=== PATIENT | female | born 1995 | race African-American/Black ===

== ENCOUNTER 2019-05-27 20:26 | Emergency (ER) | payer OTHER, SELFPAY ==
[2019-05-27 21:20] LABS: #Basophils 0.1 thou/uL (0.0-0.2); #Eosinphils 0.2 thou/uL (0.0-0.7); #Lymphocytes 3.4 thou/uL (1.20-3.40); #Monocytes 0.8 thou/uL (0.11-0.59); #Neutrophils 5.9 thou/uL (1.40-6.50); %Basophils 0.9 % (0.0-1.0); %Eosinophils 1.5 % (0.0-10.0); %Lymphocytes 32.6 % (21.0-51.0); %Neutrophils 57.1 % (42.0-75.0); Hemoglobin 10.8 g/dL (12.0-16.0); Mean Corpuscular HGB CONC 33.4 g/dL (32.0-36.0); Mean Corpuscular Hemoglobin 27.9 pg (27.0-31.0); Mean Corpuscular Volume 83.8 fL (78.0-98.0); Mean Platelet Volume 6.6 fL (7.4-10.4); Platelet Count 256 thou/uL (130-400); RBC Distribution Width 12.7 % (11.5-14.5); Red Blood Cell (RBC) Count 3.85 mill/uL (4.20-5.40); White Blood Cell (WBC) Count 10.4 thou/uL (4.8-10.8)
[2019-05-27 21:32] LABS: Bilirubin Negative (Negative); Blood, Urine Negative (Negative); Clarity Clear (Clear); Glucose, Urine (Dipstick) Normal (Negative); Leukocyte Negative Leu/uL (Negative); Nitrite Negative (Negative); Protein, Urine (Dipstick) 10 mg/dL (Neg-Trace); Urobilinogen Normal mg/dL (Less than 2)
[2019-05-27 21:45] LABS: ALT (SGPT) 11 U/L (8-55); AST (SGOT) 13 U/L (5-34); Albumin 3.9 g/dL (3.5-5.0); Alkaline Phosphatase 37 U/L (40-110); Anion Gap 11 mmol/L (10-20); BUN (Urea Nitrogen) 10 mg/dL (7.0-18.7); Bilirubin, Total Less than 0.2 mg/dL (0.2-1.2); Calc. Creatinine Clearance 0 mL/min (70-130); Calcium 9.2 mg/dL (7.8-10.44); Carbon Dioxide 25 mmol/L (22-29); Chloride 108 mmol/L (98-107); Estimated GFR-MDRD 88; Glucose 86 mg/dL (70-105); Protein, Total 6.9 g/dL (6.0-8.3); Sodium 140 mmol/L (136-145)
--- NOTE | 2019-05-27 22:28 | ULT ---
PELVIC ULTRASOUND WITH GRAYSCALE, COLOR FLOW, AND SPECTRAL DOPPLER IMAGING: History: Abdominal cramping. Positive test. FINDINGS: A single live intrauterine gestation is seen with measurements that corresponding to a gestational ag e of 6 weeks 3 days and JONI 01-17-2020. The crown rump length measures 0.58 cm. heart rate measur es 119 beats/minute. A yolk sac is present. There is a 3 cm cyst in the right ovary. Flow is demonstrated to the right ovary. The left ovary has a normal appearance. Flow is not demonstrated to the left ovary, likely due to positioning. There is a small amount of free fluid in the pelvis. No subchorionic hemorrhage is seen. IMPRESSION: Single live intrauterine gestation of 6 weeks 3 days estimated gestation age with an JONI of 01-17-2020. POS: [facility]
== END 2019-05-27 22:45 | disposition home or self-care (01) ==
LOC: ERS 20:26
DX: O99.89 Other specified diseases and conditions complicating pregnancy, childbirth and the puerperium (principal); R10.9 Unspecified abdominal pain; O99.341 Other mental disorders complicating pregnancy, first trimester; F41.9 Anxiety disorder, unspecified; F32.9 Major depressive disorder, single episode, unspecified; Z3A.09 9 weeks gestation of pregnancy
CPT/HCPCS: 36415; 76856; 80053; 81003; 84702; 85025

== ENCOUNTER 2019-06-17 11:48 | Emergency (ER) | payer MEDICAID, SELFPAY ==
[2019-06-17] MEDS ORDERED: Ondansetron ODT 4 MG TAB ONE (12:06)
== END 2019-06-17 12:35 | disposition home or self-care (01) ==
LOC: ERS 11:48
DX: O21.9 Vomiting of pregnancy, unspecified (principal); O99.341 Other mental disorders complicating pregnancy, first trimester; F31.9 Bipolar disorder, unspecified; F41.9 Anxiety disorder, unspecified; Z3A.10 10 weeks gestation of pregnancy
CPT/HCPCS: 99283; Q0162

== ENCOUNTER 2019-08-05 17:09 | Emergency (ER) | payer OTHER ==
[2019-08-05 17:43] LABS: #Basophils 0.1 thou/uL (0.0-0.2); #Eosinphils 0.1 thou/uL (0.0-0.7); #Lymphocytes 2.6 thou/uL (1.20-3.40); #Monocytes 0.6 thou/uL (0.11-0.59); #Neutrophils 4.9 thou/uL (1.40-6.50); %Basophils 0.9 % (0.0-1.0); %Eosinophils 1.4 % (0.0-10.0); %Lymphocytes 31.5 % (21.0-51.0); %Monocytes 7.1 % (0.0-10.0); %Neutrophils 59.1 % (42.0-75.0); Mean Corpuscular HGB CONC 34.3 g/dL (32.0-36.0); Mean Corpuscular Hemoglobin 28.4 pg (27.0-31.0); Mean Corpuscular Volume 82.9 fL (78.0-98.0); Mean Platelet Volume 7.7 fL (7.4-10.4); Platelet Count 248 thou/uL (130-400); RBC Distribution Width 12.4 % (11.5-14.5); Red Blood Cell (RBC) Count 4.22 mill/uL (4.20-5.40); White Blood Cell (WBC) Count 8.3 thou/uL (4.8-10.8)
[2019-08-05 18:06] LABS: ALT (SGPT) 12 U/L (8-55); AST (SGOT) 11 U/L (5-34); Albumin 3.7 g/dL (3.5-5.0); Alkaline Phosphatase 36 U/L (40-110); Anion Gap 12 mmol/L (10-20); BUN (Urea Nitrogen) 7 mg/dL (7.0-18.7); Bilirubin, Total 0.2 mg/dL (0.2-1.2); Calc. Creatinine Clearance 0 mL/min (70-130); Calcium 9.3 mg/dL (7.8-10.44); Carbon Dioxide 21 mmol/L (22-29); Chloride 106 mmol/L (98-107); Estimated GFR-MDRD Greater than 90; Globulin 3.4 g/dL (2.4-3.5); Glucose 92 mg/dL (70-105); Lipase 47 U/L (8-78); Potassium 3.4 mmol/L (3.5-5.1); Protein, Total 7.1 g/dL (6.0-8.3); Sodium 136 mmol/L (136-145)
[2019-08-05] MEDS ORDERED: Acetaminophen 500 MG TAB ONE (19:08)
[2019-08-05 19:33] LABS: Bilirubin Negative (Negative); Blood, Urine Trace (Negative); Clarity Clear (Clear); Glucose, Urine (Dipstick) Normal (Negative); Leukocyte Negative Leu/uL (Negative); Nitrite Negative (Negative); Protein, Urine (Dipstick) 10 mg/dL (Neg-Trace); Urobilinogen Normal mg/dL (Less than 2)
[2019-08-05 19:34] LABS: Bacteria/HPF None Seen HPF (None Seen); Calcium Oxalate Crystals 1+ HPF (None Seen); RBC/HPF 0-3 HPF (0-3); Squamous Epithelial 0-3 HPF (0-3); WBC/HPF 0-3 HPF (0-3)
--- NOTE | 2019-08-05 20:47 | ULT ---
EXAM: OB ultrasound COMPARISON: None HISTORY: female patient. Patient is having right lower quadrant abdominal pain. History of right ovar nina cyst. TECHNIQUE: Multiplanar grayscale and color Doppler transabdominal sonographic images are obtained. FINDINGS: There is a single intrauterine gestation in variable presentation. Cardiac Doppler demonstr ates heart tones with a heart rate of 168 beats per minute. The placenta is located posteriorly. Subjectively there is a normal amount of amniotic fluid. The cervical length measures 3. 8 cm based on transabdominal imaging. biometry measurements: BPD 3.59 cm -- 17 weeks HC 13.17 cm -- 16 weeks 5 days AC 11.52 cm -- 17 weeks 2 days FL 2.03 cm -- 16 weeks The estimated gestational age by ultrasound is 16 weeks 5 days with an JONI on01/15/2020. Gestational ag e by the last menstrual period is 16 weeks 3 days. The estimated weight by ultrasound is 166 g (6 ounces). This represents 61 percentile for weight. anatomical structures are not well evaluated on this examination due to gestational age. No def inite anomalies are seen. A normal cord insertion and stomach are seen. Limited visualized spine has a normal appearance. The right ovary demonstrates a normal sonographic appearance. A small hypoechoic structure is seen wi thin the right ovary measuring 1.9 cm which may represent corpus luteal cyst. Flow is documented in the right ovary. Left ovary is not imaged or evaluated on this exam. IMPRESSION: 1. Single intrauterine gestation in variable presentation with heart tones documented. Estimate d gestational age by ultrasound is 16 weeks 5 days. 2. Estimated weight is 166 g (6 ounces). 3. Right ovary is visualized with small cyst seen which may represent small corpus luteal cyst. Arter ial flow is documented in the right ovary. Left ovary is not seen..
== END 2019-08-05 21:15 | disposition home or self-care (01) ==
LOC: ERS 17:09
DX: O99.89 Other specified diseases and conditions complicating pregnancy, childbirth and the puerperium (principal); N20.0 Calculus of kidney; O99.342 Other mental disorders complicating pregnancy, second trimester; F41.9 Anxiety disorder, unspecified; F32.9 Major depressive disorder, single episode, unspecified; Z3A.16 16 weeks gestation of pregnancy
CPT/HCPCS: 36415; 76805; 80053; 81003; 81015; 83690; 85025; 96360

== ENCOUNTER 2019-08-06 08:26 | Emergency (ER) | payer OTHER ==
[2019-08-06 09:43] LABS: Bilirubin Negative (Negative); Blood, Urine Negative (Negative); Clarity Clear (Clear); Glucose, Urine (Dipstick) Normal (Negative); Leukocyte Negative Leu/uL (Negative); Nitrite Negative (Negative); Protein, Urine (Dipstick) Negative (Neg-Trace); Urobilinogen Normal mg/dL (Less than 2)
[2019-08-06 09:45] LABS: #Basophils 0.1 thou/uL (0.0-0.2); #Eosinphils 0.1 thou/uL (0.0-0.7); #Lymphocytes 2.5 thou/uL (1.20-3.40); #Monocytes 0.6 thou/uL (0.11-0.59); #Neutrophils 4.7 thou/uL (1.40-6.50); %Basophils 1.2 % (0.0-1.0); %Lymphocytes 31.1 % (21.0-51.0); %Monocytes 7.1 % (0.0-10.0); %Neutrophils 59.7 % (42.0-75.0); Hemoglobin 11.6 g/dL (12.0-16.0); Mean Corpuscular HGB CONC 34.1 g/dL (32.0-36.0); Mean Corpuscular Hemoglobin 28.2 pg (27.0-31.0); Mean Corpuscular Volume 82.8 fL (78.0-98.0); Mean Platelet Volume 7.5 fL (7.4-10.4); Platelet Count 235 thou/uL (130-400); RBC Distribution Width 12.4 % (11.5-14.5); Red Blood Cell (RBC) Count 4.09 mill/uL (4.20-5.40); White Blood Cell (WBC) Count 7.9 thou/uL (4.8-10.8)
[2019-08-06 10:06] LABS: ALT (SGPT) 13 U/L (8-55); AST (SGOT) 12 U/L (5-34); Albumin 3.8 g/dL (3.5-5.0); Alkaline Phosphatase 36 U/L (40-110); Anion Gap 11 mmol/L (10-20); BUN (Urea Nitrogen) 4 mg/dL (7.0-18.7); Bilirubin, Total 0.3 mg/dL (0.2-1.2); Calc. Creatinine Clearance 0 mL/min (70-130); Calcium 9.2 mg/dL (7.8-10.44); Carbon Dioxide 23 mmol/L (22-29); Chloride 105 mmol/L (98-107); Estimated GFR-MDRD Greater than 90; Globulin 3.4 g/dL (2.4-3.5); Glucose 87 mg/dL (70-105); Lipase 36 U/L (8-78); Potassium 3.2 mmol/L (3.5-5.1); Protein, Total 7.2 g/dL (6.0-8.3); Sodium 136 mmol/L (136-145)
[2019-08-06] MEDS ORDERED: Acetaminophen 500 MG TAB ONE (10:26)
== END 2019-08-06 11:19 | disposition home or self-care (01) ==
LOC: ERS 08:26
DX: O26.891 Other specified pregnancy related conditions, first trimester (principal); R10.31 Right lower quadrant pain; O99.341 Other mental disorders complicating pregnancy, first trimester; F41.9 Anxiety disorder, unspecified; F31.9 Bipolar disorder, unspecified; Z3A.13 13 weeks gestation of pregnancy
CPT/HCPCS: 36415; 80053; 81003; 83690; 85025; 99284

== ENCOUNTER 2019-11-09 13:45 | Emergency (ER) | payer OTHER ==
[2019-11-09 14:30] LABS: #Eosinphils 0.1 thou/uL (0.0-0.7); #Monocytes 0.5 thou/uL (0.11-0.59); #Neutrophils 4.7 thou/uL (1.40-6.50); %Basophils 0.6 % (0.0-1.0); %Eosinophils 0.9 % (0.0-10.0); %Lymphocytes 27.2 % (21.0-51.0); %Monocytes 7.2 % (0.0-10.0); %Neutrophils 64.2 % (42.0-75.0); Hemoglobin 11.4 g/dL (12.0-16.0); Mean Corpuscular HGB CONC 32.9 g/dL (32.0-36.0); Mean Corpuscular Hemoglobin 27.6 pg (27.0-31.0); Mean Corpuscular Volume 83.9 fL (78.0-98.0); Mean Platelet Volume 8.8 fL (7.4-10.4); Platelet Count 188 thou/uL (130-400); RBC Distribution Width 12.9 % (11.5-14.5); Red Blood Cell (RBC) Count 4.12 mill/uL (4.20-5.40); White Blood Cell (WBC) Count 7.3 thou/uL (4.8-10.8)
[2019-11-09] MEDS ORDERED: Acetaminophen 500 MG TAB ONE (14:30)
[2019-11-09 14:54] LABS: ALT (SGPT) 13 U/L (8-55); AST (SGOT) 15 U/L (5-34); Albumin 3.6 g/dL (3.5-5.0); Alkaline Phosphatase 86 U/L (40-110); Anion Gap 12 mmol/L (10-20); BUN (Urea Nitrogen) 4 mg/dL (7.0-18.7); Bilirubin, Total 0.4 mg/dL (0.2-1.2); Calc. Creatinine Clearance 0 mL/min (70-130); Calcium 9.3 mg/dL (7.8-10.44); Carbon Dioxide 21 mmol/L (22-29); Chloride 106 mmol/L (98-107); Estimated GFR-MDRD Greater than 90; Globulin 3.6 g/dL (2.4-3.5); Glucose 74 mg/dL (70-105); Lipase 43 U/L (8-78); Magnesium 1.7 mg/dL (1.6-2.6); Potassium 3.3 mmol/L (3.5-5.1); Protein, Total 7.2 g/dL (6.0-8.3); Sodium 136 mmol/L (136-145)
[2019-11-09 14:58] LABS: Bacteria/HPF 3+ HPF (None Seen); Bilirubin Negative (Negative); Blood, Urine Negative (Negative); Clarity Clear (Clear); Glucose, Urine (Dipstick) Normal (Negative); Leukocyte Negative Leu/uL (Negative); Mucous/LPF 1+ LPF (<2+); Nitrite Negative (Negative); Protein, Urine (Dipstick) 30 mg/dL (Neg-Trace)
[2019-11-09] MEDS ORDERED: Mag-Al 1200 mg/1200 mg/30 ML UDCUP ONE (15:12)
--- NOTE | 2019-11-22 15:48 | EKG ---
Test Reason : Blood Pressure : / mmHG Vent. Rate : 074 BPM Atrial Rate : 074 BPM P-R Int : 138 ms QRS Dur : 080 ms QT Int : 400 ms P-R-T Axes : 015 011 008 degrees QTc Int : 444 ms Normal sinus rhythm Minimal voltage criteria for LVH, may be normal variant Borderline ECG Confirmed by SHARLENE FRANKS DO ([id number]), health editor CHAD JOLLY ([id number]) on 11/22/2019 3:47:32 PM Referred By: Confirmed By:SHARLENE FRANKS DO
== END 2019-11-09 15:28 | disposition home or self-care (01) ==
LOC: ERS 13:45
DX: O99.613 Diseases of the digestive system complicating pregnancy, third trimester (principal); K21.9 Gastro-esophageal reflux disease without esophagitis; O99.89 Other specified diseases and conditions complicating pregnancy, childbirth and the puerperium; R07.2 Precordial pain; O99.343 Other mental disorders complicating pregnancy, third trimester; F41.9 Anxiety disorder, unspecified; F31.9 Bipolar disorder, unspecified; Z3A.31 31 weeks gestation of pregnancy
CPT/HCPCS: 80053; 81003; 81015; 83690; 83735; 84484; 85025; 93005

== ENCOUNTER 2019-12-01 16:05 | Day surgery (SDC) | payer OTHER ==
[2019-12-01] MEDS ORDERED: hydrALAZINE 20 MG/ML VIAL SLOW IVP PRN (17:17)
[2019-12-01] MEDS ORDERED: Promethazine HCl 25 MG/ML VIAL IM SCH (17:30)
[2019-12-01] MEDS ORDERED: Morphine 4 MG/ML VIAL IM SCH (17:30)
--- NOTE | 2019-12-02 05:43 | PRG ---
DATE OF SERVICE: 12/01/2019 PRIMARY DISTRIBUTION ASSOCIATE: James Mayo MD CHIEF COMPLAINT: Pelvic pain. HISTORY OF PRESENT ILLNESS: The patient is a 24-year-old, G2, P1 female with an intrauterine at 33 weeks and a day, who presented for a 45- to 60-minute onset of right sharp pelvic pain. She describes them as sharp, radiating to the vaginal wall, stabbing in nature. She noticed it when she first woke up from her nap and rolled over to get out of bed, making it worse. She denies any previous injuries or unusual activities or exertional activities prior to taking a nap. She denies fever, cough, headache, chest pain, shortness of breath, nausea, vomiting, diarrhea, or constipation. She denies new rashes, hip problems, knee problems, or muscle weakness. She denies vaginal bleeding, leakage of fluid, urinary urgency, or frequency. PAST MEDICAL HISTORY: Negative. PAST SURGICAL HISTORY: 1. She has had a prior . 2. She has had pilonidal cyst removed. 3. She has had 2 abscesses treated under general anesthesia. 4. She has had her tonsils removed. PSYCHIATRIC HISTORY: Includes: 1. Anxiety. 2. Bipolar disorder. 3. Depression. SOCIAL HISTORY: She denies drug, alcohol, or tobacco use. ALLERGIES: BACTRIM. MEDICATIONS: vitamins. OBSTETRIC LABORATORY DATA: Unavailable. REVIEW OF SYSTEMS: Per HPI. PHYSICAL EXAMINATION: VITAL SIGNS: Blood pressure is 134/87, heart rate of 81, respiratory rate 18, saturating 100% on room air, and temperature 98.0. GENERAL: She is alert, oriented, cooperative, and pleasant to interact with. HEAD: Normocephalic and atraumatic. LUNGS: Clear to auscultation bilaterally. HEART: Regular rate and rhythm. ABDOMEN: Gravid, soft, and nontender. She does have some tenderness with deviation of the uterus to the right in her lower right pelvis, reproducing her chief complaint. She has no fundal tenderness. No palpable contractions. EXTREMITIES: Nontender and nonedematous. : Deferred. heart tracing shows the fetus with a baseline in the 150s with moderate long-term variability, positive 15 x 15 accelerations, no decelerations. Tocometer showing no contractions. ASSESSMENT AND PLAN: The patient is a 24-year-old female with acute onset ligament strain, likely while sleeping and rolling over in her bed, she pulled a ligament associated with her uterus. The patient has been given 8 mg of morphine IM and 25 mg of Phenergan for temporary relief. She has been counseled using a belly band to give extra support may be helpful as she is healing. Two tablets of Extra Strength Tylenol 3 times a day for the next several days also can assist in pain relief. Fetus has a category 1 tracing and reactive NST. The patient is being discharged to home with instructions to follow up with her primary OB as scheduled. Job ID: [id number]
== END 2019-12-01 17:50 | disposition home or self-care (01) ==
LOC: L&D/OP 16:05
PROVIDERS: ATTEND Obstetrics & Gynecology
DX: O99.89 Other specified diseases and conditions complicating pregnancy, childbirth and the puerperium (principal); R10.2 Pelvic and perineal pain; O34.219 Maternal care for unspecified type scar from previous cesarean delivery; Z3A.33 33 weeks gestation of pregnancy; Z88.2 Allergy status to sulfonamides
CPT/HCPCS: J2270; J2550

== ENCOUNTER 2019-12-08 14:14 | Day surgery (SDC) | payer OTHER ==
[2019-12-08 14:38] VITALS: BMI 37.4
[2019-12-08] MEDS ORDERED: hydrALAZINE 20 MG/ML VIAL SLOW IVP PRN (15:04)
[2019-12-08] MEDS ORDERED: Acetaminophen 500 MG TAB PO SCH (15:15)
--- NOTE | 2019-12-08 15:40 | PDOC.FPROB ---
FMR OB H&P: HPI - History of Present Illness Chief Complaint: Right lower pelvi pain Indentification: 24 yo F @ 34.1 weeks History of Present Illness: Pt comes in w/ c/c of right sided pelvic pain. Reports woke up and pain has been going on since then. Reports as sharp. Reports as stabbing pain. Denies any recent trauma or stenuous activity the days prior. Denies any n/v/d/c. She denies any ctx, vaginal bleeding, discharge or irritation. Denies any urinary sx 's, burning with urination. Pt denies any rashes. Denies any fever or chills. Denies any chest pain or SOB. Pt denies any swelling. Pt reports not feeling baby as much as she usually does. Denies any LOF. Primary Care Physician: Gael FMR OB H&P: Current - Care : 2 Para: 1 Gestational age: 34.1 Due date: 12/19/2019 - OB Labs Blood type: unknown RH: unknown Antibody Screen: unknown HIV: unknown RPR: unknown HepBsAg: unknown Quad screen: unknown Gonorrhea: unknown Chlamydia: unknown FMR OB H&P: History - Past Medical History PMH: Anxiety/Depression, Bipolar - OB History OB History: Prior , Hx of preeclampsia in prior - Surgical History Sx History: prior , pilonidal cyst, 2 abscesses tx under general anesthesia, tonsilectomy - Social History Social History: Denies any drug, alcohol or tobacco use. - Family History Family History: Noncontributory FMR OB H&P: Medications - Current Allergies/Adverse Reactions: Allergies Allergy/AdvReac Type Severity Reaction Status Date / Time sulfamethoxazole Allergy Verified 12/08/19 14:36 [From Bactrim] trimethoprim [From Bactrim] Allergy Verified 12/01/19 16:33 FMR OB H&P: ROS - Review of Systems General: denies: fever/chills, weight/appetite/sleep changes Eyes: denies: vision changes, double vision Cardiovascular: denies: chest pain Respiratory: denies: cough, congestion, shortness of breath Gastrointestinal: denies: abdominal pain, indigestion, cramping, nausea, vomiting, diarrhea, constipation Genitourinary (Female): denies: incontinence, dysuria, hematuria, hesitancy, vaginal discharge, vaginal pain, vaginal bleeding Musculoskeletal: reports: pain (right pelvic pain) Integumentary: denies: itching, rash, lesions Hematologic/Lymphatic: denies: prolonged or excessive bleeding Psychological: reports: depression, anxiety FMR OB H&P: Vital Signs - Maternal Vital signs: BP 129/91 Pulse 81 O2 sat 100% - Heart Tones Baseline: 150 Variability: moderate Acceleration: present Category: category 1 [place] contractions every: None noted FMR OB H&P: Physical Exam - Physical Exam General: NAD, awake, alert and oriented HEENT: normocephalic and atraumatic, grossly normal vision, grossly normal hearing Neck: supple, FROM, trachea midline Heart: RRR, normal S1/S2, no murmurs/rubs/gallops, pulses present General: CTAB, no respiratory distress, good air movement, no rales/rhonchi, no retractions Abdomen: soft, gravid, non-tender, bowel sound present, no masses, no hernias Musculoskeletal: normal gait and station, FROM in all four extremities Neurological: sensation to pain,touch and proprioception grossly normal Skin: no rash, good tugor Psychiatric: intact recent and remote memory, good judgement and insight FMR OB H&P: A/P - Problem List (1) Status: Acute Qualifiers: Weeks of gestation: 34 weeks Qualified Code(s): Z3A.34 - 34 weeks gestation of (2) Round ligament pain Status: Acute Code(s): N94.9 - UNSP COND ASSOC W FEMALE GENITAL ORGANS AND MENSTRUAL CYCLE Disposition: Will order Urinalysis to ensure no infection leading to pain. Gave dose of Tylenol 1000mg. Advised to drink plenty of fluids. Advised likely round ligament pain in nature. FHT 145, strip reactive with multiple accells noted. Anticipate d/c once we get urinalys results. Discussed return precautions and discussed therapeutic measures to help alleviate round ligament pain. Discussion: Date/Time: 12/08/191535 This H&P was discussed with [] and [] who agree with the above documentation and plan. Addendum - Attending - Attending Attestation Date/Time: 12/08/192027 I personally evaluated the patient and discussed the management with Dr. Hernandez. I agree with the History, Examination, Assessment and Plan documented above.
[2019-12-08 16:21] LABS: Bilirubin Negative (Negative); Blood, Urine Negative (Negative); Clarity Clear (Clear); Glucose, Urine (Dipstick) Normal (Negative); Leukocyte Negative Leu/uL (Negative); Mucous/LPF Rare LPF (<2+); Nitrite Negative (Negative); Protein, Urine (Dipstick) 20 mg/dL (Neg-Trace); RBC/HPF 0-3 HPF (0-3); Urobilinogen Normal mg/dL (Less than 2)
[2019-12-08 16:32] LABS: Bacteria/HPF 2+ HPF (None Seen)
== END 2019-12-08 16:55 | disposition home or self-care (01) ==
LOC: L&D/OP 14:14
DX: O99.89 Other specified diseases and conditions complicating pregnancy, childbirth and the puerperium (principal); R10.2 Pelvic and perineal pain; O34.219 Maternal care for unspecified type scar from previous cesarean delivery; Z3A.34 34 weeks gestation of pregnancy; Z88.2 Allergy status to sulfonamides
CPT/HCPCS: 81003; 99282

== ENCOUNTER 2019-12-19 13:10 | Inpatient (IN) | payer OTHER ==
[2019-12-19 13:26] VITALS: BMI 39.9
[2019-12-19] MEDS ORDERED: hydrALAZINE 20 MG/ML VIAL SLOW IVP PRN ×2 (13:43→16:54)
[2019-12-19 15:46] LABS: #Basophils 0.1 thou/uL (0.0-0.2); #Eosinphils 0.1 thou/uL (0.0-0.7); #Lymphocytes 2.3 thou/uL (1.20-3.40); #Monocytes 0.6 thou/uL (0.11-0.59); #Neutrophils 3.9 thou/uL (1.40-6.50); %Basophils 1.5 % (0.0-1.0); %Eosinophils 1.2 % (0.0-10.0); %Lymphocytes 33.4 % (21.0-51.0); %Monocytes 8.2 % (0.0-10.0); %Neutrophils 55.7 % (42.0-75.0); Hemoglobin 11.8 g/dL (12.0-16.0); Mean Corpuscular HGB CONC 34.5 g/dL (32.0-36.0); Mean Corpuscular Hemoglobin 28.6 pg (27.0-31.0); Mean Corpuscular Volume 82.9 fL (78.0-98.0); Mean Platelet Volume 9.4 fL (7.4-10.4); Platelet Count 210 thou/uL (130-400); RBC Distribution Width 13.4 % (11.5-14.5); Red Blood Cell (RBC) Count 4.12 mill/uL (4.20-5.40); White Blood Cell (WBC) Count 6.9 thou/uL (4.8-10.8)
[2019-12-19 16:08] LABS: ALT (SGPT) 23 U/L (8-55); AST (SGOT) 19 U/L (5-34); Albumin 3.3 g/dL (3.5-5.0); Alkaline Phosphatase 156 U/L (40-110); Anion Gap 11 mmol/L (10-20); BUN (Urea Nitrogen) 5 mg/dL (7.0-18.7); Bilirubin, Total 0.4 mg/dL (0.2-1.2); Calc. Creatinine Clearance 192 mL/min (70-130); Calcium 8.9 mg/dL (7.8-10.44); Carbon Dioxide 23 mmol/L (22-29); Chloride 106 mmol/L (98-107); Estimated GFR-MDRD Greater than 90; Globulin 3.5 g/dL (2.4-3.5); Glucose 77 mg/dL (70-105); Potassium 3.1 mmol/L (3.5-5.1); Protein, Total 6.8 g/dL (6.0-8.3); Sodium 137 mmol/L (136-145)
[2019-12-19 16:31] LABS: Creatinine, Urine 40.16 mg/dL (47-110); Protein, Urine Random Quant Less than 10 mg/dL (1-14)
--- NOTE | 2019-12-19 16:47 | ULT ---
BIOPHYSICAL PROFILE: 12/19/19 COMPARISON: None. HISTORY: Decreased movement. TECHNIQUE: Multiplanar bose scale sonographic imaging of the gravid uterus obtained to perform a biophysical pro file. FINDINGS: There is a single intrauterine gestation present with a vertex presentation. heart rate is 136 beats per minute. The placenta is located posteriorly. The plastics supervisor reports a 0 out of 2 score for movement and tone and a 2 out of 2 for fe cesar breathing movement and amniotic fluid volume. AIF is 12.5. IMPRESSION: 4 out of 8 biophysical profile score. Results were called to Dr. Aleman at 2:54 p.m., 12/19/19. Code CR POS: [facility]
[2019-12-19] MEDS ORDERED: Betamet Acet/Betamet Na Ph 30 MG/5 ML VIAL ONE (16:53)
[2019-12-19] MEDS ORDERED: Ondansetron PF 4 MG/2 ML Vial IVP PRN (16:54)
[2019-12-19] MEDS ORDERED: Promethazine HCl 25 MG/ML VIAL IM PRN (16:54)
[2019-12-19] MEDS ORDERED: Betamet Acet/Betamet Na Ph 30 MG/5 ML VIAL IM SCH (17:00)
--- NOTE | 2019-12-19 17:01 | PDOC.LDHP ---
Labor and Delivery H&P Chief complaint: other (Decreased FM) HPI: 24 yo BF presents c/o decreased FM since 0800. Denies THOMAS or visual changes. Denies LOF or bleeding. Current gestational age (weeks): 35 Due date: 01/18/20 Dating criteria: last menstrual period Grav: 2 Para: 1 OB History Details: Previous C/S at term for nonreassuring FHTs and reported PIH Current complications: none Abnormal US findings: No Past Medical History: none Current medications: pre-kp vitamins Previous surgical history: low tranverse CS, other (T&A pilonidal cyst) Allergies/Adverse Reactions: Allergies Allergy/AdvReac Type Severity Reaction Status Date / Time sulfamethoxazole Allergy Verified 12/19/19 13:23 [From Bactrim] trimethoprim [From Bactrim] Allergy Verified 12/19/19 13:23 Social history: none - Physical Exam Abnormal vital signs: >160 x2 General: NAD Heart: RRR Lungs: CTAB Abdomen: gravid Extremeties: trace edema FHT: category 1 - Assessment 35 5/7 IUP previous C/S decreased FM with BPP of 4 yet tracing is Cat 1 initial elevated BPs but no sxs PIH labs are all WNL - Plan Plan: observation in L&D (Start BMX Observe BPs overnight Repeat BPP in AM D/w Dr. Mayo)
[2019-12-19] MEDS: Lactated Ringer's 1,000 ML IV SCH (17:36)
[2019-12-19 17:37] LABS: HBSAg Index 0.18 S/CO (0-0.99); Hep B Surf Ag Non-Reactive S/CO (NonReactive)
[2019-12-19 17:38] LABS: Syphilis Antibody Nonreactive (Nonreactive); Syphilis Antibody Index 0.02 S/CO (<1.00 Non-Reactive)
[2019-12-19] MEDS ORDERED: Potassium Chloride 20 MEQ TAB PO SCH (18:00)
[2019-12-19] MEDS: Acetaminophen 500 MG TAB PO PRN (21:29)
[2019-12-19] MEDS: Butorphanol Tartrate 1 MG/ML VIAL SLOW IVP PRN (22:40)
[2019-12-20] MEDS: Lactated Ringer's 1,000 ML IV SCH (02:18)
--- NOTE | 2019-12-20 03:32 | PDOC.EVN ---
Event Note - Event Note Event Note: Resting, no complaints. Single dose of hydralazine given on admit, BPs have remained stable since that time.. FHTs are reassuring, no decels seen. 1st dose of steroids given on admit. Plan: NPO now, repeat BPP in AM.
[2019-12-20] MEDS: Butorphanol Tartrate 1 MG/ML VIAL SLOW IVP PRN (03:56)
[2019-12-20] MEDS ORDERED: Potassium Chloride 20 MEQ TAB PO SCH (08:00)
--- NOTE | 2019-12-20 09:48 | ULT ---
Sonographic biophysical profile exam Obstetric sonogram Limited HISTORY: Decreased movement. Abnormal exam previously. FINDINGS: Single intrauterine gestation in cephalic presentation. Posterior placenta without previa o r abruption. Heart motion at 152 bpm. Amniotic fluid index 13.9. Good tone, gross movement, and breathing movement were demonstrated. IMPRESSION : Sonographic biophysical profile score 8/8.
--- NOTE | 2019-12-20 10:02 | PRG ---
DATE OF SERVICE: 12/20/2019 TIME OF SERVICE: 0945 hours. SUBJECTIVE: Ms. Pérez is resting comfortably this morning. She denies headache . She reports an active fetus. Repeat BPP was 8/8. heart rate tracing has been category one throughout the night. The patient's blood pressures had been in the 120s to 130s over 80s, throughout the night however, she just had a 157/86. We will repeat this and not administer hydralazine at this time; but because of this elevated blood pressure, we will keep the patient an observation status. Plan on administering 2nd betamethasone this evening and observe until tomorrow. If the patient develops a persistent severe range of blood pressures, we will proceed with repeat . Otherwise, we will attempt to delay until 37 weeks for gestational hypertension. Job ID: [id number]
[2019-12-20 16:37] VITALS: BP 112/70; TEMP 98.9
[2019-12-20] MEDS: Acetaminophen 500 MG TAB PO PRN (19:05)
--- NOTE | 2019-12-21 06:49 | DIS ---
DATE OF ADMISSION: 12/19/2019 DATE OF DISCHARGE: 12/20/2019 HOSPITAL COURSE: Ms. Pérez was admitted to Labor and Delivery at 35 weeks with an elevated blood pressure and decreased movement. She had an initial BPP of 4/8, was felt to be erroneous with category I tracing and normal BROWN. Repeat BPP the next morning was within normal limits. She had two systolics in the 150s during her time. Otherwise, her blood pressures were all in the 130s. She denied headache or scotoma, and her laboratory was all within normal limits. The patient was going to be kept until the morning of 12/20, however, the patient left against medical advice around midnight on 12/19. She was instructed to keep her scheduled followup with Dr. Mayo at [facility] [place] next week. Job ID: [id number]
== END 2019-12-20 23:18 | disposition left against medical advice (07) | DRG 833 ==
LOC: L&D/OP 13:10 → L&D 18:56 → OBSVTOIN 18:56 → L&D 12-20 16:54
PROVIDERS: ADMIT Obstetrics & Gynecology; ATTEND Obstetrics & Gynecology
DX: O13.3 Gestational [pregnancy-induced] hypertension without significant proteinuria, third trimester (principal); Z3A.35 35 weeks gestation of pregnancy
CPT/HCPCS: 36415; 76819; 80053; 82570; 84156; 85025; 86780; 86850; 86900; 86901; 87340; 96374; 96375; 99285; G0378; J0360; J0595; J0702; J2405

== ENCOUNTER 2019-12-21 12:40 | Day surgery (SDC) | payer OTHER ==
[2019-12-21 13:01] VITALS: BMI 39.9
[2019-12-21 13:02] VITALS: BP 128/85; TEMP 98.2
--- NOTE | 2019-12-21 14:24 | PDOC.EVN ---
Event Note - Event Note Event Note: MARGARITA Morgan here at bedside now Dr Dover here NSY reactive No evidence PTL Vitals ok See formal note
--- NOTE | 2019-12-21 14:50 | PDOC.FPROB ---
FMR OB H&P: HPI - History of Present Illness Chief Complaint: Dizziness Indentification: 24 year old at 36.0 wks History of Present Illness: 24 year old at 36.0 wks presents after leaving against medical advise last night. She was admitted on 12/18 as pre-E workup and to monitor BP's. She got two doses of steroids prior to leaving. Pre-E labs and urine protein were negative. Patient was kept for monitoring due to two BP's in the 150's range. She did have several BP's >140/90, but none in the severe range after extensive monitoring. Patient denies headache, abdominal pain, lower extremity swelling, shortness of breath, or chest pain. She denies fever or chills. She endorses dizziness which is not positional and some intermittently blurry vision. She states this was going on prior to her leaving last night, but she opted to leave anyways due to family concerns. She denies vaginal bleeding, vaginal discharge, LoF, or contractions. Patient denies loss of consciousness. She endorses some weakness. Primary Care Physician: Dr. Mayo FMR OB H&P: Current - Care : 2 Para: 1001 Gestational age: 36.0 wks Due date: 01/18/2020 FMR OB H&P: History - Past Medical History PMH: Denies pertinent PMH - OB History OB History: Previous C/S at term for NRFHT's and reported PIH - Surgical History Sx History: LTCS T&A Pilonidal cyst - Social History Social History: Denies tobacco, alcohol, or drug use FMR OB H&P: Medications - Current Home Medications: Medication Instructions Recorded Confirmed Type Vitamin 1 tablet PO DAILY 12/19/19 12/19/19 History Allergies/Adverse Reactions: Allergies Allergy/AdvReac Type Severity Reaction Status Date / Time sulfamethoxazole Allergy Verified 12/21/19 13:00 [From Bactrim] trimethoprim [From Bactrim] Allergy Verified 12/21/19 13:00 FMR OB H&P: ROS - Review of Systems General: reports: weight/appetite/sleep changes (decreased appetite), fatigue. denies: fever/chills ENT: denies: nasal congestion, rhinorrhea, sore throat Cardiovascular: denies: chest pain, palpitation, edema Gastrointestinal: reports: nausea. denies: abdominal pain, vomiting, diarrhea Genitourinary (Female): denies: dysuria, vaginal discharge, vaginal bleeding, contractions Musculoskeletal: denies: pain, stiffness, tenderness Neurologic: reports: weakness. denies: numbness, syncope, headache Integumentary: denies: itching, rash, lesions Hematologic/Lymphatic: denies: prolonged or excessive bleeding Psychological: denies: depression, anxiety FMR OB H&P: Vital Signs - Maternal Vital signs: Vital Signs - First Documented Temp Pulse Resp BP 98.2 F 82 18 128/85 12/21/19 12:58 12/21/19 12:58 12/21/19 12:58 12/21/19 12:58 - Heart Tones Baseline: 140 Variability: moderate Acceleration: present Deceleration: absent [place] contractions every: Reactive FMR OB H&P: Physical Exam - Physical Exam General: NAD, awake, alert and oriented HEENT: MMM, grossly normal vision, grossly normal hearing Heart: RRR General: no respiratory distress, no wheezing Abdomen: soft, gravid, non-tender Musculoskeletal: pulses present, FROM in all four extremities Neurological: no tremor, no focal deficit Skin: no rash, capillary refill <2 seconds Lymphatic: no unusual bruising or bleeding, no purpura Psychiatric: intact recent and remote memory FMR OB H&P: A/P - Problem List (1) Intrauterine Status: Acute Code(s): Z34.90 - ENCNTR FOR SUPRVSN OF NORMAL , UNSP, UNSP TRIMESTER (2) Previous section Status: Acute Code(s): Z98.891 - HISTORY OF UTERINE SCAR FROM PREVIOUS SURGERY (3) Dizziness Status: Acute Code(s): R42 - DIZZINESS AND GIDDINESS Disposition: 24 year old at 36.0 wks presents with dizziness and nausea sIUP - at 36.0 wks - VSS (No BP's >140/90, afebrile, RRR) - s/p 2 doses of betamethasone - CBC, CMP and urine protein/creatinine done on 12/18 all WNL - Patient tolerated PO challenge with water, she declined any anti-emetics Dispo: Patient has been thoroughly evaluated over the last two days. Labs WNL. BP's on arrival today have all been normal range (<140/90). Patient passed PO challenge. She declined anti-emetics. No evidence of PTL. Vitals not suggestive of dehydration. Advised to take it easy over the next few days. Follow up with Dr. Mayo next week as previously scheduled. Discussion: Date/Time: 12/21/19 1902 This H&P was discussed with Dr. Morgan who agrees with the above documentation and plan. Signature: Sonia Dover, DO PGY-3
== END 2019-12-21 14:49 | disposition home health service (06) ==
LOC: L&D/OP 12:40
PROVIDERS: ATTEND Obstetrics & Gynecology
DX: O99.89 Other specified diseases and conditions complicating pregnancy, childbirth and the puerperium (principal); R42 Dizziness and giddiness; O34.211 Maternal care for low transverse scar from previous cesarean delivery; Z3A.36 36 weeks gestation of pregnancy; Z88.2 Allergy status to sulfonamides
CPT/HCPCS: 99282

== ENCOUNTER 2019-12-23 14:03 | Inpatient (IN) | payer OTHER ==
[2019-12-23] MEDS ORDERED: hydrALAZINE 20 MG/ML VIAL SLOW IVP PRN ×2 (14:36→17:58)
--- NOTE | 2019-12-23 14:36 | PDOC.FPROB ---
FMR OB H&P: HPI - History of Present Illness Chief Complaint: neck pain Indentification: @ 36.2 WGA History of Present Illness: 24YO @ 36.2 WGA who presented to L&D for evaluation for headache. Reports her headache started today and states "I have a migraine." Endorses associated vision changes on photophobia but no associated N/V/D. Took tylenol earlier today without relief. Since headache started she has now developed neck pain and stiffness. No fever/chills, congestion, edema, RUQ pain, or cough. Does endorse burning chest pain but no SOB. + FM. No VB, LOF or abnormal discharge. Primary Care Physician: Gael FMR OB H&P: Current - Care : 2 Para: 1 Gestational age: 36.2 Course/Complications: none FMR OB H&P: History - Past Medical History PMH: None, no Hx of migraine HAs - OB History OB History: 1 term C/S - Surgical History Sx History: tonsillectomy, pilonidal cystectomy, C/S x1 - Social History Social History: No TAD. - Family History Family History: non-contributory FMR OB H&P: Medications - Current Home Medications: Medication Instructions Recorded Confirmed Type Vitamin 1 tablet PO DAILY 12/19/19 12/23/19 History Acetaminophen [Tylenol] 1,000 mg PO Q6HR PRN 12/23/19 12/23/19 History Allergies/Adverse Reactions: Allergies Allergy/AdvReac Type Severity Reaction Status Date / Time sulfamethoxazole Allergy Anaphylaxis Verified 12/23/19 14:48 [From Bactrim] trimethoprim [From Bactrim] Allergy Verified 12/21/19 13:00 FMR OB H&P: ROS - Review of Systems General: denies: fever/chills, fatigue Eyes: reports: vision changes. denies: eye pain ENT: denies: nasal congestion, sore throat Cardiovascular: reports: chest pain. denies: palpitation, edema Respiratory: denies: cough, shortness of breath Gastrointestinal: denies: nausea, vomiting, diarrhea Genitourinary (Female): denies: dysuria, hematuria Musculoskeletal: reports: pain, stiffness Neurologic: reports: headache FMR OB H&P: Vital Signs - Maternal Vital signs: BP: 124/82 HR: 74 RR: 18 T: 97.8F - Heart Tones Baseline: 150 Variability: moderate Acceleration: present Deceleration: absent [place] contractions every: none noted FMR OB H&P: Physical Exam - Physical Exam General: NAD, awake, alert and oriented HEENT: normocephalic and atraumatic, MMM, grossly normal vision, grossly normal hearing Neck: supple, FROM Heart: RRR, normal S1/S2, no murmurs/rubs/gallops, pulses present, no edema General: CTAB, no respiratory distress, good air movement, no rales/rhonchi, no wheezing, no retractions Abdomen: gravid Musculoskeletal: pulses present, FROM in all four extremities Neurological: cranial nerves II through XII intact, sensation to pain,touch and proprioception grossly normal, no focal deficit Skin: no rash, good tugor Psychiatric: intact recent and remote memory, good judgement and insight, normal mood and affect FMR OB H&P: A/P - Problem List (1) Headache Current Visit: Yes Status: Acute Code(s): R51 - HEADACHE Qualifiers: Headache type: unspecified Headache chronicity pattern: acute headache (2) Neck stiffness Current Visit: Yes Status: Acute Code(s): M43.6 - TORTICOLLIS (3) Current Visit: No Status: Acute Qualifiers: Weeks of gestation: 36 weeks Qualified Code(s): Z3A.36 - 36 weeks gestation of (4) Previous section Current Visit: No Status: Acute Code(s): Z98.891 - HISTORY OF UTERINE SCAR FROM PREVIOUS SURGERY Disposition: 24YO who presents to L&D for evaluation for headache with associated neck stiffness & photophobia. #Headache - Patient endorses a migraine THOMAS w/ photophobia & vision changes. No N/V. Will give 10mg reglan & 25mg benadryl IV & IVFs. Will check a CBC & CMP & COVID swab although not considering her to be a PUI given headache is her only symptom. - BP WNLs since arrival but given h/o elevated pressures and reported symptoms will check a CMP & CBC. Last pre-e screening labs done on 12/19/19 WNLs per chart review. #Neck pain/stiffness - Likely 2/2 headache, will treat as noted above. #Suspected GERD - Patient reported intermittent burning chest pain. Will give PO maalox & reassess. #h/o C/S - Aware, patient hasn't decided preferred mode of delivery yet. # : - sIUP @ 36.2 WGA. Continue routine care. Dispo: Will administer txs as outlined above and likely d/c home pending laboratories are WNLs & clinical status improves. Discussion: Date/Time: 12/23/19 3627 This H&P was discussed with Dr. Morgan who agrees with the above documentation and plan.
[2019-12-23 14:51] VITALS: BMI 39.9
[2019-12-23] MEDS ORDERED: Metoclopramide HCl 10 MG/2 ML VIAL IVP PRN (15:37)
[2019-12-23] MEDS ORDERED: Mag-Al Plus 1200 MG/1200 MG/120 MG/30 ML UDCUP PO SCH (15:45)
[2019-12-23] MEDS: diphenhydrAMINE 50 MG/ML VIAL IVP SCH ×2 (15:59→17:30)
[2019-12-23 16:04] LABS: #Basophils 0.1 thou/uL (0.0-0.2); #Lymphocytes 3.3 thou/uL (1.20-3.40); #Neutrophils 4.3 thou/uL (1.40-6.50); %Basophils 1.6 % (0.0-1.0); %Eosinophils 0.5 % (0.0-10.0); %Lymphocytes 37.8 % (21.0-51.0); %Monocytes 11.1 % (0.0-10.0); %Neutrophils 49.1 % (42.0-75.0); Hemoglobin 11.1 g/dL (12.0-16.0); Mean Corpuscular HGB CONC 34.4 g/dL (32.0-36.0); Mean Corpuscular Hemoglobin 28.7 pg (27.0-31.0); Mean Corpuscular Volume 83.4 fL (78.0-98.0); Mean Platelet Volume 9.7 fL (7.4-10.4); Platelet Count 201 thou/uL (130-400); RBC Distribution Width 13.4 % (11.5-14.5); Red Blood Cell (RBC) Count 3.87 mill/uL (4.20-5.40); White Blood Cell (WBC) Count 8.7 thou/uL (4.8-10.8)
[2019-12-23 16:26] LABS: ALT (SGPT) 27 U/L (8-55); AST (SGOT) 21 U/L (5-34); Albumin 3.1 g/dL (3.5-5.0); Alkaline Phosphatase 138 U/L (40-110); Anion Gap 11 mmol/L (10-20); BUN (Urea Nitrogen) 6 mg/dL (7.0-18.7); Bilirubin, Total 0.3 mg/dL (0.2-1.2); Calc. Creatinine Clearance 209 mL/min (70-130); Calcium 8.1 mg/dL (7.8-10.44); Carbon Dioxide 22 mmol/L (22-29); Chloride 109 mmol/L (98-107); Estimated GFR-MDRD Greater than 90; Globulin 2.6 g/dL (2.4-3.5); Glucose 74 mg/dL (70-105); Potassium 3.4 mmol/L (3.5-5.1); Protein, Total 5.7 g/dL (6.0-8.3); Sodium 139 mmol/L (136-145)
--- NOTE | 2019-12-23 16:26 | PDOC.EVN ---
Event Note - Event Note Event Note: CBC OK Other labs pending. I reviewed COVID screening protocol here in L&D with ROCIO Kirby. Because he are testing her for COVID due to THOMAS sxs, we will need to place her in isolation per protocol as PUI. Noted. We will follow protocol and place in isolation for now.
--- NOTE | 2019-12-23 16:44 | HP ---
Time of evaluation was roughly 1530 hours. Time of dictation is around 1546 hours. LOCATION: Triage A. The patient of Dr. Mayo. I saw this patient at bedside with Dr. Neema Pickett. The patient has a chief complaint of headache and "muscle tightness around her neck." HISTORY OF PRESENT ILLNESS: This is a 24-year-old , G2, P1, at 36 weeks and 2 days, who was here about 3 days ago with similar headache symptoms. She was ruled out for PIH at that time and was sent home. She states now that she has a headache, that is worse with the lights on. I asked her if she had a formal diagnosis of a migraine headache and she says she has never seen a neurologist, but she assumes that is what this is. She does have some mild "black spot" sometimes in her vision when her headache happens. REVIEW OF SYSTEMS: The patient also states that she has some mild heartburn, but otherwise complete review of systems is negative. OB HISTORY: She is a G2, P1, and has a previous . She has not addressed if she wants to have a vaginal trial or not with her provider yet. ALLERGIES: NONE. HABITS: Smoking history is negative. Alcohol and drug use are also negative. PHYSICAL EXAMINATION: VITAL SIGNS: Blood pressure was first 120s/80s, and then when I was talking to her, it was 135/85. GENERAL: Clinically, she is in no acute distress and does not appear to be acutely ill. ABDOMEN: Soft and nontender. CERVICAL: Exam is currently deferred as there is no issue or complaint of contractions at this time, and I do not see any contractions on tocodynamometer. On gross inspection, there is no evidence of vaginal bleeding or leakage of fluid. monitors, the heart tones are in the 130s to 140s and they are reactive. There is maybe some mild uterine irritability, but no contraction pattern. ASSESSMENT: This is a 24-year-old G2, P1, at 36 weeks and 2 days with possible atypical migraine versus other. Blood pressure is normal, but I did order a CMP and a CBC to make sure we are not missing any atypical preeclampsia. PLAN: 1. Blood pressure observations. 2. Continue NST. 3. I have ordered a CMP and a CBC. 4. I have ordered Reglan and Benadryl for her headache. I have also ordered some Maalox to see if that helps with her reflux symptoms. 5. I have also ordered a COVID test due to vague nonspecific constitutional symptoms, I want to make sure I am not missing anything. As of right now, she is not a real patient under investigation, but I am ordering this to be complete. I have addressed the COVID test with her and she understands. I also addressed that I am not putting her in isolation because I do not believe that she actually has this, but I just do not want to miss anything. 6. I have also discussed this with Mirta and she is aware and agrees with the plan. We will find the N95 mask, so that we can collect the COVID per protocol. 7. The patient is not in isolation because she does not meet criteria for PUI i.e. patient under investigation at this time. 8. I will also give her some IV fluids to make sure she is okay. I am aware that this may be an atypical presentation of preeclampsia, but right now, her pressures are okay, so we will just continue to watch her for now. Job ID: [id number]
--- NOTE | 2019-12-23 17:12 | PDOC.EVN ---
Event Note - Event Note Event Note: Still awaiting reglan administration. RNs changed over due to N95 need. Labs so far OK
[2019-12-23] MEDS ORDERED: Labetalol HCl 100 MG/20 ML VIAL ONE (17:48)
[2019-12-23] MEDS ORDERED: Magnesium Sulfate 20 gm/500 ml 0 GM/0 ML BAG ONE (17:52)
[2019-12-23] MEDS ORDERED: Bicitra 30 ML UDCUP ONE (17:53)
[2019-12-23] MEDS ORDERED: Ondansetron PF 4 MG/2 ML Vial IVP PRN ×2 (17:58→22:27)
[2019-12-23] MEDS ORDERED: Promethazine HCl 25 MG/ML VIAL IM PRN ×2 (17:58→22:27)
--- NOTE | 2019-12-23 17:58 | PDOC.EVN ---
Event Note - Event Note Event Note: PREOP CS NOTE: Patient now in isolation room. However, BP now 180 and 160 systolic. Diastolic BP 90s. With THOMAS, and severe range BPs, I have DX severe preeclampsia. I have reviewed this with the patient at bedside, and her RN (Trinity). She declines TOLAC. She desires repeat CS. I have discussed that we will start MagSulfate. I do not believe this is COVID but we will adhere to protocol until test back. I can now explain the THOMAS with BPs with severe Preeclampsia. Last eate at 10AM I am admitting patient, calling anesthesia, and resident to prepare the team. Labetolol 10mg X 1 ordered.
[2019-12-23] MEDS ORDERED: CEFAZOLIN 2 GM in Premix Bag 1 BAG IVPB SCH (18:00)
[2019-12-23] MEDS ORDERED: Calcium Gluc 4.6 MEQ/10 ML (100 MG/ML) SLOW IVP PRN (18:00)
[2019-12-23] MEDS ORDERED: Magnesium Sulfate 20 GM/WATER 500 ML BAG IVPB SCH (18:00)
[2019-12-23] MEDS ORDERED: Magnesium Sulfate 20 gm/500 ml 20 GM/500 ML BAG IVPB SCH (18:00)
[2019-12-23] MEDS ORDERED: Labetalol HCl 100 MG/20 ML VIAL SLOW IVP SCH (18:00)
[2019-12-23] MEDS ORDERED: Bicitra 30 ML UDCUP PO SCH (18:00)
--- NOTE | 2019-12-23 18:06 | PDOC.EVN ---
Event Note - Event Note Event Note: Steroids have been given previously for FLM
--- NOTE | 2019-12-23 18:07 | PDOC.EVN ---
Event Note - Event Note Event Note: Dr Pickett (Resident) notified and will come to L&D eduardo. Awaiting anesthesia word. Per RN team, will likely be closer to 1900 for staffing. This is non- emergent.
[2019-12-23] MEDS: Lactated Ringer's 1,000 ML IV SCH ×2 (18:26→23:31)
[2019-12-23 19:02] LABS: Syphilis Antibody Nonreactive (Nonreactive); Syphilis Antibody Index 0.02 S/CO (<1.00 Non-Reactive)
[2019-12-23 19:03] LABS: HBSAg Index 0.19 S/CO (0-0.99); HIV (1/2) Antibody/Antigen Non-Reactive (NonReactive); HIV 1/2 INDEX 0.23 S/CO (<1.00); Hep B Surf Ag Non-Reactive S/CO (NonReactive)
[2019-12-23] MEDS ORDERED: Fentanyl 100 MCG/2 ML VIAL ONE (19:17)
[2019-12-23] MEDS ORDERED: Ketorolac Tromethamine 30 MG/ML VIAL ONE (19:17)
[2019-12-23] MEDS ORDERED: Ondansetron PF 4 MG/2 ML Vial ONE (19:17)
[2019-12-23] MEDS ORDERED: PHENYLEPHRINE-NS 100 MCG/ML 10 ML SYRINGE ONE (19:17)
[2019-12-23] MEDS ORDERED: MORPHINE 5 MG/10 ML PF VIAL ONE (19:17)
[2019-12-23] MEDS ORDERED: Oxytocin 10 UNITS/ML VIAL ONE (19:17)
[2019-12-23] MEDS ORDERED: Dexamethasone 4 mg/ml Vial ONE (19:17)
[2019-12-23] MEDS ORDERED: EPHEDRINE 25 MG/5 ML SYRINGE ONE (19:17)
[2019-12-23] MEDS ORDERED: Misoprostol 200 MCG TAB PR PRN (20:35)
[2019-12-23] MEDS ORDERED: Simethicone Chewable 80 MG TAB PO PRN (20:35)
[2019-12-23] MEDS ORDERED: Lanolin Ointment 7 GM TUBE TOP PRN (20:35)
[2019-12-23 20:41] LABS: Actual Bicarbonate (HCO3v) 24 mEq/L (22-28); Base Excess -1.9 mEq/L (-2.0 to +3.0); pH (Cord, venous) 7.35 (7.32-7.43)
[2019-12-23 20:44] LABS: Actual Bicarbonate (HCO3a) 24.9 mEq/L (22-28); Base Excess (BEa) -2.4 mEq/L (-2.0 to +3.0)
[2019-12-23] MEDS ORDERED: NS / Oxytocin 40 units/1000ml 1,000 ML IV SCH (20:45)
--- NOTE | 2019-12-23 21:25 | OP ---
DATE OF PROCEDURE: 12/23/2019 RESIDENT SURGEON: Neema Pickett MD ATTENDING SURGEON: Colton Morgan MD PROCEDURE PERFORMED: 1. Repeat low transverse section. 2. Vacuum assisted head delivery due to nonengaged status (one traction, no pop off) PREOPERATIVE DIAGNOSES: 1. intrauterine . 2. Previous section. 3. Preeclampsia with severe features. POSTOPERATIVE DIAGNOSES: 1. intrauterine . 2. Previous section. 3. Preeclampsia with severe features. ANESTHESIA: Spinal. INDICATIONS FOR PROCEDURE: The patient is a 24-year-old G2, P1-0-0-1 female at 36.2 weeks' gestation, who presented to L and D for evaluation for headache and was found to have severe range blood pressures consistent with preeclampsia with severe features. PROCEDURE IN DETAIL: After the risks, benefits, and alternatives were explained to the patient, she gave informed consent. Preoperative antibiotics included cefazolin 2 g IV. The patient was taken to the operating room and spinal anesthesia was initiated. She was placed in the supine position with a left tilt, prepped and draped in the usual sterile fashion. A Pfannenstiel incision was made with a scalpel, and both scalpel and electrocautery were used to carry down to the level of the fascia, which was sharply nicked. The fascial cut was extended bilaterally with Cheek scissors and electrocautery. The inferior and superior edges of the fascial edges were elevated with Adolfo clamps and the underlying rectus muscles were sharply and bluntly dissected free. The recti were divided digitally and retracted manually. The peritoneum was entered bluntly and retracted manually. An Jesus O was then placed. A low transverse score was made with scalpel and the uterus was entered in the midline with a scalpel. Clear fluid was seen. The hysterotomy was extended manually. The infant was noted to be vertex and was delivered via vacuum extraction due to non-engaged location and inability to fundal push to the PANFILO for delivery. One attempt with no pop-off was successful. Correct vacuum placement was confirmed pre and post traction. The mouth and nares were bulb suctioned. Cord clamped and cut and grossly normal male was handed to waiting nurse. Cord blood was obtained and a cord segment for cord gases. Placenta was manually extracted and found to be intact with 3-vessel cord and discarded. The uterus was then closed with a running locking 1-0 Monocryl suture. A FISH device was then placed beneath the muscle layer which was then reapproximated using a running nonlocking 2-0 chromic suture. Following this, hemostasis was noted. Electrocautery was then used to cease scant bleeding along the hysterotomy and hemostasis noted. The abdomen was irrigated with saline and suctioned free of clots. The hysterotomy was again noted to be hemostatic. The fascia was closed with a running nonlocking 0 PDS suture (2 sutures used, one per side). The subcutaneous tissue was irrigated and there were no free bleeders. The skin was approximated with dewayne. A dressing was placed. All counts were correct. The patient tolerated the procedure well and was taken to the recovery room in stable condition. QUANTITATIVE BLOOD LOSS: 850 mL COMPLICATIONS: None. SPECIMENS: Cord blood, cord segment, and placenta sent to the lab for blood type, blood gases, and placenta path analysis. FINDINGS: 1. Grossly normal male infant with Apgars of 8 & 8. 2. Grossly normal placenta with three vessel cord sent for path as noted above. DRAINS: Almazan to gravity draining clear urine. Job ID: [id number] [facility]
--- NOTE | 2019-12-23 21:52 | PDOC.EVN ---
Event Note - Event Note Event Note: Called for episode vag bleed and clots. I arrived after donning PPE. Bleeding stopped when I arrived. Cytotec 800mcg IL now
--- NOTE | 2019-12-23 21:53 | PDOC.EVN ---
Event Note - Event Note Event Note: total QBL in OR 2as 850. Now about 300ml EBL. Total about 1100, PPH
[2019-12-23] MEDS: Carboprost 250 MCG/ML AMP ONE ×2 (22:03→22:25)
[2019-12-23] MEDS ORDERED: Meperidine HCl/PF 25 MG/ML VIAL SLOW IVP PRN (22:26)
[2019-12-23] MEDS ORDERED: HYDROmorphone 2 MG/ML VIAL SLOW IVP PRN (22:26)
[2019-12-23] MEDS ORDERED: L&D-Morphine 4 MG/ML VIAL SLOW IVP PRN (22:26)
[2019-12-23] MEDS ORDERED: Ondansetron HCl/PF 4 MG/2 ML Vial IVP PRN (22:26)
[2019-12-23] MEDS ORDERED: Promethazine HCl 25 MG SUPP PR PRN (22:27)
[2019-12-23] MEDS ORDERED: Naloxone HCl 0.4 mg/ml Vial IVP PRN ×2 (22:27)
[2019-12-23] MEDS ORDERED: Naloxone HCl 0.4 mg/ml Vial IV PRN (22:27)
[2019-12-23] MEDS ORDERED: diphenhydrAMINE 50 MG/ML VIAL IVP PRN (22:27)
[2019-12-23] MEDS ORDERED: Ketorolac Tromethamine 30 MG/ML VIAL IVP SCH (22:30)
[2019-12-23] MEDS ORDERED: Communication Order-Pharmacy FS SCH (22:30)
--- NOTE | 2019-12-23 22:31 | PDOC.EVN ---
Event Note - Event Note Event Note: BLOOD TRANSFUSION: Called to see Ms Pérez again while I was in triage with another patient. About 400ml blood per vagina noted. Hemabate x1 given, ordered second dose hemabate now. Our QBL is about 1650 in recovery. QBL in OR was 850. TOTAL is about 2500 by weight although patient looks very well and her pulse is 76. BP 125/86. I performed vag exam and expressed small clots. No further Vag Bleed now...that was about 200ml. The patient is alert and oriented and looks well so I cant figure how the QBL is over 2500ml. Pulse is 76 and BP is 152/86. I have explained this to the patient. Patient needed blood after her first CS as well due to excessive bleeding. Had 3 units then. I will order 2 units now. Pulse ox with normal pulse at this time. I will order Pt and PTT now, check CBC now. Vag Bleed may be due to mag effect vs other as recurrent problem
[2019-12-23 22:55] LABS: Hemoglobin 10.1 g/dL (12.0-16.0); Mean Corpuscular HGB CONC 33.6 g/dL (32.0-36.0); Mean Corpuscular Hemoglobin 28.5 pg (27.0-31.0); Mean Corpuscular Volume 84.7 fL (78.0-98.0); Mean Platelet Volume 9.4 fL (7.4-10.4); Platelet Count 170 thou/uL (130-400); RBC Distribution Width 13.6 % (11.5-14.5); Red Blood Cell (RBC) Count 3.54 mill/uL (4.20-5.40); White Blood Cell (WBC) Count 23.4 thou/uL (4.8-10.8)
[2019-12-23 23:01] LABS: INR-International Normal Ratio 1.3; Prothrombin Time 16.5 sec (12.0-14.7)
[2019-12-24] MEDS ORDERED: Meperidine HCl/PF 25 MG/ML VIAL ONE (02:07)
--- NOTE | 2019-12-24 02:33 | PDOC.EVN ---
Event Note - Event Note Event Note: Patient did end up with tachycardia a while ago with HR to 120-130s. Now on second unit and pulse is low 100s. I have reviewed case with her RN. WE will see what HR is after this second unit is in. No further Vag Bleed.
--- NOTE | 2019-12-24 02:41 | PDOC.EVN ---
Event Note - Event Note Event Note: OP note reviewed from Dr Pickett. I agree with the op note. I was the vacuum toaster operator for the delivery. No complications noted.
--- NOTE | 2019-12-24 06:25 | PDOC.PP ---
Post Progress Note Post Day #: 1 Subjective: Doing well PO intake tolerated: yes Flatus: yes Ambulation: yes Vital Signs (12 hours) Pulse BP 12/23/19 18:26 74 165/92 H Weight Weight 233 lb Vitals reviewed in QS. Pulse has been in 80s since 2nd unit. - Physical Examination General: NAD Respiratory: non-labored breathing Abdominal: + bowel sounds, lochia, no distention, appropriately TTP Extremities: negative homans (B) Neurological: no gross focal deficits Psychiatric: A&Ox3, normal affect Result Diagrams: 12/23/19 22:44 12/23/19 15:54 Additional Labs: Post Labs Blood Type A POSITIVE 12/23/19 18:19 Hep Bs Antigen Non-Reactive S/CO (NonReactive) 12/23/19 18:19 (1) Blood transfusion during current hospitalisation Code(s): [id number] - Status: Acute Comment: Stable after 2nd unit. I have ordered a repeat HH at 14oo today. (2) Delivery by section Code(s): IVX5534 - Status: Acute Comment: No further VB. Total QBL was about 2500 with vast majority occurring in recovery. Unclear etiology but suspect atony as resolved with cytotec and hemabate x2 (3) hemorrhage Code(s): O72.1 - OTHER IMMEDIATE HEMORRHAGE Status: Acute Comment : Resolved at this point. S/P 2 units. (4) Severe preeclampsia Code(s): O14.10 - SEVERE PRE-ECLAMPSIA, UNSPECIFIED TRIMESTER Status: Acute Comment: Continue Mag Sulfate until 1730 today or so. BPs OK
[2019-12-24] MEDS: Ibuprofen 800 MG TAB PO SCH ×3 (07:24→21:39)
[2019-12-24] MEDS: Ferrous Sulfate 325 MG TAB PO SCH ×3 (07:24→21:43)
[2019-12-24] MEDS: Docusate Calcium (SURFAK) 240 MG CAP PO SCH ×3 (07:24→21:39)
--- NOTE | 2019-12-24 08:11 | PDOC.EVN ---
Event Note - Event Note Event Note: THis AM looks well. I am in check out with oncoming . TXA was not given as we were using uterotonics actively and now greater than 3 hrs from incident and stable. HH at 1400 today.
[2019-12-24] MEDS ORDERED: Ketorolac Tromethamine 30 MG/ML VIAL ONE ×2 (09:33→15:33)
[2019-12-24] MEDS: Ketorolac Tromethamine 30 MG/ML VIAL IVP PRN ×2 (09:44→15:35)
[2019-12-24] MEDS: Prenatal Vitamin 1 TAB PO SCH (09:44)
[2019-12-24] MEDS: Lactated Ringer's 1,000 ML IV SCH ×2 (11:10→21:45)
[2019-12-24 14:26] LABS: Hemoglobin 8.9 g/dL (12.0-16.0)
[2019-12-24 14:55] LABS: SARS-CoV-2 MS2 Positive; SARS-CoV-2 N Gene Negative; SARS-CoV-2 S Gene Negative; SARS-CoV-2 orf1ab Negative
--- NOTE | 2019-12-24 15:01 | PDOC.BPN ---
- Brief Progress Note COVID 19 result negative.
[2019-12-24] MEDS: Acetaminophen/Codeine 30-300mg Tablet PO PRN (21:39)
[2019-12-25] MEDS: Acetaminophen/Codeine 30-300mg Tablet PO PRN ×2 (02:00→08:51)
[2019-12-25] MEDS: Lactated Ringer's 1,000 ML IV SCH ×2 (04:45→10:11)
[2019-12-25] MEDS: Ibuprofen 800 MG TAB PO SCH ×3 (05:32→21:11)
--- NOTE | 2019-12-25 07:04 | PDOC.PP ---
Post Progress Note Post Day #: 2 Subjective: Doing well this morning, only feels a little sore. Just showered and has been ambulating without difficulty. Would like to go home today if possible. PO intake tolerated: yes Ambulation: yes Vital Signs (12 hours) Temp Pulse Resp BP Pulse Ox 12/25/19 05:25 99.1 F 85 18 132/80 12/25/19 00:35 98.7 F 80 18 135/75 12/24/19 20:07 99.0 F 88 18 134/83 98 Weight Weight 233 lb - Physical Examination General: NAD Respiratory: non-labored breathing Abdominal: lochia (normal), no distention, appropriately TTP Fundus firm & at: umbilicus Skin: CS incision dry & intact, no rash Neurological: no gross focal deficits Psychiatric: A&Ox3, normal affect Result Diagrams: 12/24/19 13:56 12/23/19 15:54 Additional Labs: Post Labs Blood Type A POSITIVE 12/23/19 18:19 Hep Bs Antigen Non-Reactive S/CO (NonReactive) 12/23/19 18:19 (1) Delivery by section Code(s): [id number] - Status: Acute Comment: No further VB. Total QBL was about 2500 with vast majority occurring in recovery. Unclear etiology but suspect atony as resolved with cytotec and hemabate x2 (2) hemorrhage Code(s): O72.1 - OTHER IMMEDIATE HEMORRHAGE Status: Acute Comment : Resolved at this point. S/P 2 units. (3) Severe preeclampsia Code(s): O14.10 - SEVERE PRE-ECLAMPSIA, UNSPECIFIED TRIMESTER Status: Acute Comment: Continue Mag Sulfate until 1730 today or so. BPs OK - Assessment/Plan 24 y/o s/p PLTCS for severe preeclampsia, POD#2. S/p MgSO4. BPs normal overnight. Had 2 severes in early evening. Asymptomatic. Also complicated by PPH, s/p transfusion 2U PRBCs. Will continue to monitor today and consider d/c this evening vs tomorrow.
[2019-12-25] MEDS: Prenatal Vitamin 1 TAB PO SCH (08:51)
[2019-12-25] MEDS: Docusate Calcium (SURFAK) 240 MG CAP PO SCH ×2 (08:52→21:12)
[2019-12-25] MEDS: Ferrous Sulfate 325 MG TAB PO SCH ×2 (08:52→21:11)
[2019-12-26] MEDS: Acetaminophen/Codeine 30-300mg Tablet PO PRN (03:23)
[2019-12-26] MEDS: Ibuprofen 800 MG TAB PO SCH ×2 (03:23→14:41)
[2019-12-26] MEDS: Lactated Ringer's 1,000 ML IV SCH ×2 (03:39→08:40)
[2019-12-26 08:15] VITALS: BP 140/79; TEMP 98.5
[2019-12-26] MEDS: Prenatal Vitamin 1 TAB PO SCH (08:39)
[2019-12-26] MEDS: Ferrous Sulfate 325 MG TAB PO SCH (08:39)
[2019-12-26] MEDS: Docusate Calcium (SURFAK) 240 MG CAP PO SCH (08:40)
--- NOTE | 2019-12-28 04:27 | PQF ---
Natali Pérez KATIE [id number] CLINICAL DOCUMENTATION CLARIFICATION FORM: POST DISCHARGE Addendum to original discharge summary date: ____ Late entry note date: __ DATE:12/28/2019 ATTN: Natalia Cook Please exercise your independent, professional judgment in responding to the clarification form. Clinical indicators are provided on the bottom of this form for your review Please check appropriate box(s): [ ] Associated Diagnosis: Acute blood loss Anemia [ ] Abnormal Laboratory findings not clinically significant [ ] Other diagnosis [ ] Unable to determine In addition, please specify: Present on Admission (POA): [ ] Yes [ ] No [ ] Unable to determine For continuity of documentation, please document condition throughout progress notes and discharge summary. Thank You. CLINICAL INDICATORS - SIGNS / SYMPTOMS/ LABS are present in the medical record: Laboratory 12/22 RBC 3.87; 3.54, Hgb 11.1; 10.1, Hct 32.3; 30.0 Laboratory 12/23 Hgb 8.9, Hct 26.1 Vital signs 12/22 BP 165/92, Pulse 74, Resp 18, Temp 97.8 Operative report p1 12/22 Estimated blood loss 850 ml PN p2 12/23 Dr Segura Hemorrhage RISK FACTORS Operative report p1 12/22 Intrauterine Operative report p1 12/22 Preeclampsia with severe features Operative report p1 12/22 s/p Repeat Low transverse C/S TREATMENT Series of Hgb and Hct labs ordered 12/23SEP 13 Ferrous Sulfate 325 mg oral Blood bank 12/23 Transfused RBC IVF SEP 13 (This form is maintained as a part of the permanent medical record) 2014 [employer] All Rights Reserved [employer]
== END 2019-12-26 15:35 | disposition home or self-care (01) | DRG 788 ==
LOC: L&D/OP 14:03 → L&D 14:04 → 3SW 12-24 19:59
PROVIDERS: ADMIT Obstetrics & Gynecology; ATTEND Obstetrics & Gynecology
PROC: 10D00Z1 Extraction of Products of Conception, Low, Open Approach (ICD-10-PCS; principal; 2019-12-23)
PROC: 30233N1 Transfusion of Nonautologous Red Blood Cells into Peripheral Vein, Percutaneous Approach (ICD-10-PCS; 2019-12-24)
DX: O14.14 Severe pre-eclampsia complicating childbirth (principal); O34.211 Maternal care for low transverse scar from previous cesarean delivery; O72.1 Other immediate postpartum hemorrhage; Z20.828 Contact with and (suspected) exposure to other viral communicable diseases; Z88.1 Allergy status to other antibiotic agents; Z88.2 Allergy status to sulfonamides; Z3A.36 36 weeks gestation of pregnancy; Z37.0 Single live birth; R00.0 Tachycardia, unspecified; O99.43 Diseases of the circulatory system complicating the puerperium
CPT/HCPCS: 36415; 36430; 51702; 59025; 80053; 81003; 82805; 85014; 85018; 85025; 85610; 85730; 86780; 86850; 86900; 86901; 87340; 87389; 87635; 88307; 99285; J0690; J1100; J1200; J1885; J2175; J2274; J2405; J2590; J2765; J3010; J3475; J3490; P9016; U0003

== ENCOUNTER 2020-04-27 17:10 | Emergency (ER) | payer OTHER ==
[2020-04-27 17:28] LABS: #Basophils 0.1 thou/uL (0.0-0.2); #Eosinphils 0.2 thou/uL (0.0-0.7); #Lymphocytes 3.4 thou/uL (1.20-3.40); #Monocytes 0.7 thou/uL (0.11-0.59); #Neutrophils 5.8 thou/uL (1.40-6.50); %Basophils 1.4 % (0.0-1.0); %Eosinophils 1.5 % (0.0-10.0); %Lymphocytes 33.2 % (21.0-51.0); %Monocytes 6.7 % (0.0-10.0); %Neutrophils 57.2 % (42.0-75.0); Hemoglobin 12.8 g/dL (12.0-16.0); Mean Corpuscular HGB CONC 34.5 g/dL (32.0-36.0); Mean Corpuscular Hemoglobin 27.6 pg (27.0-31.0); Mean Corpuscular Volume 79.9 fL (78.0-98.0); Mean Platelet Volume 8.6 fL (7.4-10.4); Platelet Count 285 thou/uL (130-400); RBC Distribution Width 14.1 % (11.5-14.5); Red Blood Cell (RBC) Count 4.65 mill/uL (4.20-5.40); White Blood Cell (WBC) Count 10.1 thou/uL (4.8-10.8)
[2020-04-27 17:34] LABS: BHCG - Serum Negative (NEGATIVE); Pregs Control Background? CLEAR/WHITE (CLR/WHITE); Pregs Control Bar Appear? YES (CONTROL BAR)
[2020-04-27 17:42] LABS: Acetaminophen Less than 6.0 mcg/mL (10.0-30.0); Alcohol Less than 10 mg/dL (Less than 10); CK (CPK) 620 U/L (29-168); Magnesium 1.9 mg/dL (1.6-2.6); Salicylate Less than 8.0 mg/dL (15.0-30.0)
[2020-04-27 17:43] LABS: ALT (SGPT) 15 U/L (8-55); AST (SGOT) 20 U/L (5-34); Albumin 4.2 g/dL (3.5-5.0); Alkaline Phosphatase 61 U/L (40-110); Anion Gap 14 mmol/L (10-20); BUN (Urea Nitrogen) 11 mg/dL (7.0-18.7); Bilirubin, Total 0.2 mg/dL (0.2-1.2); Calc. Creatinine Clearance 0 mL/min (70-130); Calcium 9.4 mg/dL (7.8-10.44); Carbon Dioxide 21 mmol/L (22-29); Chloride 106 mmol/L (98-107); Estimated GFR-MDRD 71; Globulin 3.9 g/dL (2.4-3.5); Glucose 87 mg/dL (70-105); Potassium 3.6 mmol/L (3.5-5.1); Protein, Total 8.1 g/dL (6.0-8.3); Sodium 137 mmol/L (136-145)
[2020-04-27 18:05] LABS: Thyroid Stimulating Hormone 1.3351 uIU/mL (0.35-4.94)
[2020-04-27 18:11] LABS: Bilirubin Negative (Negative); Blood, Urine Negative (Negative); Clarity Clear (Clear); Glucose, Urine (Dipstick) Normal (Negative); Ketone, Urine Trace mg/dL (Negative); Leukocyte Negative Leu/uL (Negative); Nitrite Negative (Negative); Protein, Urine (Dipstick) Negative (Neg-Trace); Specific Gravity, Urine 1.014 (1.002-1.036); Urobilinogen Normal mg/dL (Less than 2); pH, Urine 5.5 (5.0-9.0)
[2020-04-27 18:21] LABS: Amphetamine Not Detected (NotDetected); Barbiturates Screen Not Detected (NotDetected); Benzodiazepine Screen Not Detected (NotDetected); Cocaine Metabolite Screen Not Detected (NotDetected); Medtox Control Line Valid? VALID (VALID); Medtox Reader # READER 4; Methadone Not Detected (NotDetected); Methamphetamine Not Detected (NotDetected); Opiate Screen Not Detected (NotDetected); Oxycodone Screen Not Detected (NotDetected); Phencyclidine (PCP) Not Detected (NotDetected); THC/Cannabinoid Screen Not Detected (NotDetected); Tricyclic Screen Not Detected (NotDetected)
== END 2020-04-28 12:41 | disposition home or self-care (01) ==
LOC: ERS 17:10
DX: F33.9 Major depressive disorder, recurrent, unspecified (principal); F41.9 Anxiety disorder, unspecified
CPT/HCPCS: 51701; 80053; 80306; 80307; 81003; 82550; 83735; 84443; 84703; 85025; 93005; 96360; 96361